=== PATIENT | female | born 1965 | race Caucasian/White ===

== ENCOUNTER 2017-07-12 23:28 | Emergency (ER) | payer OTHER, SELFPAY ==
[2017-07-12 23:29] VITALS: BP 161/102; PULSE 68; RESP 16; TEMP 36.9; O2SAT 100; BMI 25.9
[2017-07-13 00:23] VITALS: BP 154/114; PULSE 64
--- NOTE | 2017-07-13 00:44 | ED.DCSUM_ITS ---
- ER Visit Summary Date of Service: 07/13/17 Chief Complaint: [] Hypertension History of Present Illness: The patient is a 51 F [] complaining of hypertension and anxiety. Patient reports she had a TIA 3 weeks ago in this facility and was admitted overnight for observation. She reportedly had an MRI that indicated a mini stroke. She had her atenolol increased and had aspirin added to her regimen. She reports taking her blood pressure today and was in the 160s systolic and she reports increasing anxiety and concern that her hypertension will cause her to have another mini stroke. She reports slight tingling in her right upper extremity however denies any neurologic deficit. Physical Examination: [] Afebrile, vital signs stable. Systolic blood pressure measuring 153 upon arrival. Middle-age female no acute distress. Cardiovascular exam is regular rate and rhythm. Lungs clear to auscultation. Abdomen is soft and nontender. No lower extremity edema. NIH score is 0. Plus 5 out of 5 bilateral upper and lower extremity strength. Test Results: [] None. Emergency Department Course and Treatment: [] Patient given 1 mg intravenously of Ativan, 625 mg intravenously of Phenergan, 0.1 mg p.o. clonidine. On serial examination blood pressure measured 118/78. Patient reportedly felt improved. She was discharged to follow-up with her primary care physician. Treatment Plan: [] Follow up with PCP or neurologist. Return if symptoms recur. Disposition: [] Discharge, stable. Impression: [] Anxiety Hypertension History of TIA This note was generated with [employer] dictation software. It may contain incorrect words, spelling, and punctuation that were not noted in review of the chart prior to signing ED Disposition - Plan for ED Patient: Chief Complaint: Hypertension Referrals: Kaity Silva MD [Primary Care Provider] -
[2017-07-13] MEDS: cloNIDine HCl 0.1 MG Tablet PO (00:49)
[2017-07-13] MEDS: LORazepam 2 MG/ML Syringe 1 MG IV (00:53)
[2017-07-13 00:56] VITALS: BP 137/97
--- NOTE | 2017-07-13 01:37 | ED.DEP ---
ED Disposition - Plan for ED Patient: Disposition: Home or Assisted Living Chief Complaint: Hypertension Diagnosis: Essential (primary) hypertension Instructions: ED HTN Established, Your Body's Response to Anxiety Referrals: Kaity Silva MD [Primary Care Provider] -
[2017-07-13 01:59] VITALS: BP 112/74; PULSE 64
== END 2017-07-13 02:00 | disposition home or self-care (01) ==
PROVIDERS: Emergency Provider Emergency Medicine; Family Provider Internal Medicine; PCP Internal Medicine
DX: F41.9 Anxiety disorder, unspecified (principal); I10 Essential (primary) hypertension; Z86.73 Personal history of transient ischemic attack (TIA), and cerebral infarction without residual deficits; E78.00 Pure hypercholesterolemia, unspecified
CPT/HCPCS: 96374; 96375; 99284

== ENCOUNTER → 2019-04-27 15:00 | Outpatient (CLI) | payer OTHER, SELFPAY ==
[2019-04-27 16:06] LABS: Erythrocyte Sedimentation Rate 8 mm/hr (0-30)
[2019-04-27 16:33] LABS: Vitamin B12 1302 pg/mL (211-911); Vitamin D,25 Hydroxy 22.9 ng/mL (29.95-100.01)
[2019-04-27 16:39] LABS: ALB/GLOB Ratio 1.2 RATIO (0.9-2.4); AST(SGOT) 20 U/L (15-37); Alanine Aminotransfer ALT/SGPT 34 U/L (13-56); Albumin, Serum 3.9 g/dL (3.2-5.0); Alkaline Phosphatase 98 U/L (45-117); Anion Gap 7 (5-15); BUN 11 mg/dL (7-18); BUN/Creat Ratio 16.8 RATIO (10-20); Bilirubin, Direct 0.22 mg/dL (0.00-0.30); CRP < 2.90 mg/L (0.0-3.0); Chloride 109 mmol/L (98-107); Creatinine, Serum 0.66 mg/dL (0.55-1.02); EST Glomerular Filtration Rate 100 mL/min (>60); Est Glom Filt Rate - Afr Amer 120 mL/min (>60); Globulin 3.3 g/dL (2.2-4.2); Glucose 107 mg/dL (74-106); Magnesium 2.2 mg/dL (1.6-2.6); Phosphorus 3.2 mg/dL (2.5-4.9); Potassium 3.6 mmol/L (3.5-5.1); Protein, Total 7.2 g/dL (6.4-8.2); Sodium Level 143 mmol/L (136-145); Thyroid Stim Hormone (TSH) 1.48 uIU/mL (0.358-3.74)
== END ==
PROVIDERS: Family Provider Internal Medicine; PCP Internal Medicine; Referring Provider Nurse Practitioner Family; Visit Provider Nurse Practitioner Family
DX: R53.83 Other fatigue (principal); Z79.899 Other long term (current) drug therapy
CPT/HCPCS: 36415; 80053; 82248; 82306; 82607; 83735; 84100; 84443; 85652; 86140

== ENCOUNTER 2020-04-13 18:20 | Emergency (ER) | payer OTHER, SELFPAY ==
[2020-04-13 18:21] VITALS: BP 165/95; PULSE 67; RESP 15; TEMP 36.4; O2SAT 97; BMI 25.0
--- NOTE | 2020-04-13 18:57 | ED.VISSUMM ---
- ER Visit Summary Date of Service: 04/13/20 Chief Complaint: Acute on chronic hypertension History of Present Illness: The patient is a 54 F history of prior TIA, hypertension and hyperlipidemia. Patient currently is on atenolol 50 twice daily and lisinopril 20 in the morning and 10 at night for her hypertension. States that she has had a very stressful week and her blood pressures been running higher. Earlier today it was 170/100 last several days has been around 149/99. She really denies any substantial complaints. No chest pain. No strokelike symptoms. Physical Examination: White female no acute distress initial blood pressure 165/95. On my exam it is 160/88. No distress. H EENT exam unremarkable. Normal speech no facial droop. Neck nontender. Lungs clear to auscultation. Heart regular rhythm no murmur. Abdomen soft nontender. Extremities moves all 4. Normal corporate associate strength. Normal dorsi plantarflexion. Neuro exam normal NIH 0. Test Results: None Emergency Department Course and Treatment: Patient has acute on chronic hypertension. Currently where her blood pressure is running I would not acutely lower that. She denied a long discussion on blood pressure treatments. She understands that she needs no testing and she is comfortable being discharged home with outpatient follow-up. Treatment Plan: Continue her current blood pressure medications. Log blood pressures twice daily. Follow-up with your doctor next week to see if they need to make any adjustments to her blood pressure medications. Disposition: Discharge Impression: Acute on chronic hypertension History of prior TIA This note was generated with [employer] dictation software. It may contain incorrect words, spelling, and punctuation that were not noted in review of the chart prior to signing ED Disposition - Plan for ED Patient: Referrals: Kaity Silva MD [Primary Care Provider] -
--- NOTE | 2020-04-13 19:00 | ED.DEP ---
ED Disposition - Plan for ED Patient: Disposition: Home or Assisted Living Instructions: ED High Blood Pressure Established Out of Control Referrals: Kaity Silva MD [Primary Care Provider] - 5-7 Days Additional Instructions: Log blood pressures twice daily. When you follow-up with your primary care physician reviewed blood pressures with them. Once he see the pressures they can decide if they need to make any medication adjustments. This may be stress related it could also be that you need your medication dosages adjusted.
[2020-04-13 19:11] VITALS: BP 156/94; PULSE 66; O2SAT 99
== END 2020-04-13 19:16 | disposition home or self-care (01) ==
PROVIDERS: Emergency Provider Emergency Medicine; PCP Internal Medicine
DX: I10 Essential (primary) hypertension (principal); E78.5 Hyperlipidemia, unspecified; Z86.73 Personal history of transient ischemic attack (TIA), and cerebral infarction without residual deficits
CPT/HCPCS: 99282

== ENCOUNTER 2025-01-04 13:44 | Outpatient (RCR) | payer BC, SELFPAY ==
--- NOTE | 2025-01-04 14:41 | HP.PTEVAL ---
Patient's Visit Information Visit Information Visit Information: BOSTON BANKS is a 59 year old F referred to Physical Therapy by Dr. Xavier Snyder MD with a diagnosis of Right Shoulder Pain. Date of Evaluation: 01/04/25 Physical Therapist: Carmela Moyer DPT Visit Plan Frequency: 1x/Week Duration: 1 Week Plan: Discharge to HEP- call if questions or concerns. HEP Given IE: postural education, scapular retraction, bilateral ER, mid row, LAE Subjective Subjective: Patient reports right shoulder pain- about a year- saw Dr. Snyder last week- cortisone injection- feels a lot better- 90% back to normal. Worst prior to injection: 5/10 Agg: lifting the overhead, reaching, getting dressed. Right hand dominate. Eases: Tylenol, avoidance. Pain was located it the back of the shoulder- the pain radiated to the elbow. 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 Sleep: sometimes as she is a side sleeper. She is here for some exercises that she can do to keep the pain away. X-ray but no MRI. PMHx: HTN, cholesterol. Meds: see list in chart. Objective Objective: Posture: forward head, rounded shoulders- can correct and maintain with verbal cues Palpation: not tender ROM: Cervical: WNL, Shoulder: WNL with tightness reported at end range flexion and IR behind the back Strength: Shoulder: 4+/5 throughout, Scap: fair plus, Elbow: 5/5 Wrist: 5/5 Sealing Machine Operator: good Special Tests R Shoulder Empty Can - SS: Positive R Shoulder Belly Press - SupScap: Negative R Shoulder Neer - Impingement: Positive R Shoulder Mariscal Kevan - Impingement: Positive Balance/Special Test Scores Quick DASH Score: 15.9075 Goals Goal 1:: Patient will be I with HEP and progression Goal Time Frame: 1 Week Rehabilitation Potential Physical Therapy Diagnosis: Patient presents with decreased scapular strength/stabilization leading to poor posture causing impingement and pain Rehabilitation Potential: Good Anticipated Interventions Text: Thank you for the opportunity to evaluate your patient. For Medicare and Medicare HMO plans, please review the plan of care and approve it. It will need to be FAXED BACK to us at [phone] for Medicare purposes. For Medicare only, by signing this I certify the plan of care. Please let me know if there are questions or concerns regarding this plan of care. Physician Signature: Date:
--- NOTE | 2025-01-04 14:41 | HP.PT.NRP ---
Patient Information Patient Information: BOSTON BANKS was seen in my office for initial evaluation on 01/04/25. The following Plan of Care was established for this patient: POC Established Initial Frequency: 1x/Week Initial Duration: 1 Week Last Seen Last Seen: This patient was last seen in our office . Pertinent comments regarding their Physical therapy will appear below: At this point I will be discontinuing this patient from physical therapy. I would be happy to see this patient again in the future if found appropriate by the physician. Thank you! Carmela Moyer DPT Balance/Gait/Functional tests Balance/Special Test Scores Quick DASH Score: 15.9095
== END 2025-01-04 19:00 | disposition home or self-care (01) ==
LOC: PT 13:44
PROVIDERS: PCP Internal Medicine; Referring Provider Orthopaedic Surgery; Visit Provider Orthopaedic Surgery
DX: M25.511 Pain in right shoulder (principal)
CPT/HCPCS: 97162

== ENCOUNTER 2025-04-19 17:00 | Outpatient (RCR) | payer BC, SELFPAY ==
--- NOTE | 2025-03-18 11:49 | HP.PTEVAL_ITS ---
Patient's Visit Information Visit Information Visit Information: BOSTON BANKS is a 59 year old F referred to Physical Therapy by Dr. Xavier Snyder MD with a diagnosis of L KNEE OA, CHONDROMALACIA AND COMPLEX TEAR OF MENISCUS. Date of Evaluation: 03/18/25 Physical Therapist: Ilene Pino PT, Cert MDT Visit Plan Frequency: 2x /Week Duration: 2-4 Months Plan: MODALITIES NEEDED TO HELP DECREASE L KNEE PAIN AND SWELLING. PATELLAR MOBS AND OTHER MANUAL THERAPY NEEDED FOR ROM AND EDEMA REDUCTION. CORE AND LE STRENGTHENING TO HELP IMPROVE ADL AND GAIT FUNCTION. AVOID LONG ARC EXT AND DEEP SQUATS. 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 Present symptoms: L KNEE PAIN, SWELLING AND STIFFNESS. CLICKING AND POPPING. INTERMITTENT LOCKING AND BUCKLING. Present since: COUPLE YEARS AGO WITH FLARE UP THIS SPRING AND AGAIN END OF JAN 2025 Pain Scale: WORST 5/10, LEAST 1/10 Currently: 1/10 Is it getting better, worse or staying the same: STAYING THE SAME OR WORSENING AGAIN Commenced as a result of: NO APPARENT REASON Symptoms at onset: END OF JAN - WOKE UP WITH A LOT OF SWELLING. Worse: STEPS, GETTING UP AND DOWN FROM THE FLOOR, TWISTING, TOO MUCH WALKING, WALKING UP AND DOWN HILLS, STANDING ON IT A LOT, WALKING ON GRAVEL, BENDING, STRETCHING IT OUT. Better: BENDING MY KNEE*, ICING IT, RESTING IT, BEING OFF OF IT, RUBBING IT, TYLONOL, DRAINING IT AND CORTISONE SHOT (FEB 04 2025). Disturbed sleep: SOMETIMES Previous history/Previous treatment: H/O ACHING IN THE BACK OF THE KNEE PRIOR TO THIS RECENT FLARE UP. Treatment this episode: DRAINING OF KNEE AND CORTISONE SHOT. Gait: MILD LIMP ON LLE. NORMALLY CAN GO UP AND DOWN STEPS RECIPROCALLY BUT SOMETIMES HAS TO GO ONE AT A TIME. Imaging: L KNEE X-RAYS AND MRI AT [facility]/Recent major surgery: HTN AND CHOLESTEROL. H/O RHODA SHLD PAIN. OTHER: HAS TRIP TO [place] AND [place] PLANNED IN NOVEMBER 2025. WANTS TO AVOID SURGERY UNTIL AFTER TRIP IF AT ALL POSSIBLE. STATES THAT SHE HAS BEEN A LOT BETTER SINCE HAVING HER KNEE DRAINED AND GETTING THE CORTISONE SHOT. Objective Objective: THIS PATIENT AMBULATES INDEP'LY INTO PT WITHOUT ANY AD'S WITH DECREASED STRIDE LENGTH AND A MILD LIMP ON THE LLE. R LE ROM AND STRENGTH IS WFL. SHE HAS SWELLIING AND TENDERNESS LOCALIZED TO THE L KNEE REGION MAINLY SURROUNDING THE L PATELLA AND IS ESPECAILLY TENDER OVER THE PATELLAR TENDON. SHE HAS DECREASED PATELLAR MOBILITY. NEURO INTACT. L KNEE ACTIVE EXT IN SITTING IS -15 DEG AND SUPINE PASSIVE EXT IS -6 DEG. L KNEE FLEXION IS 140 DEG. PATIENT C/O PAIN AND POPPING DURING MVMT INTO FLEX AND EXT. EVEN THOUGH THERE IS L KNEE PUFFINESS CIRCUMFERENE MEASUREMENTS AT THE JT LINE ARE SYMMETRICAL RHODA AT 38.5 CM. LLE STRENGTH: HIP 4/5, KNEE EXT 3-/5, KNEE FLEX 3-/5, ANKLE 5/5. PATIENT HAS FAIR CORE STRENGTH. Goals Goal 1:: DECREASE C/O L KNEE PAIN BY AT LEAST 50% TO EASE ADL'S. Goal Time Frame: 6-8 Weeks Goal 2:: INCREASE PAINFREE FLEX AND EXT ROM OF L KNEE TO EASE ADL'S Goal Time Frame: 6-8 Weeks Goal 3:: IMPROVE FUNCTIONAL STRENGTH OF CORE AND LLE TO EASE ADL'S. Goal Time Frame: 6-8 Weeks Goal 4:: PATIENT WILL BE ABLE TO WALK ON LEVEL SURFACES COMMUNITY DISTANCES WITH 0-2/10 L KNEE PAIN, NORMALIZED GAIT AND WITHOUT FEAR OF LLE BUCKLING. Goal Time Frame: 8-12 Weeks Goal 5:: PATIENT WILL BE ABLE TO ASCEND AND DESCEND STEPS RECIPROCALLY WITH ONE HR WITHOUT LIMITATION Goal Time Frame: 8-12 Weeks Goal 6:: PATIENT WILL BE INDEP WITH A HEP FOR CONTINUED IMPROVEMENT POST FORMAL PT Goal Time Frame: 8-12 Weeks Rehabilitation Potential Physical Therapy Diagnosis: CORE AND L LE STIFFNESS AND WEAKNESS WITH ALTERED GAIT. Rehabilitation Potential: Fair Anticipated Interventions Patient/Client Instruction: Educate patient on: Condition, Plan of Care and Risk Factors For the Purpose of:: To improve self management Therapeutic Exercise to Include: Strength training, Body mechanics, Flexibilty training, Gait and locomotor training, Neuromotor development, "In an aquatic setting", Passive ROM and Active ROM Manual Therapy Techniques to Include: Massage, Manual lymph drainage, Mobilization and Passive ROM Comment: PATELLAR MOBILIZATION For the Purpose of:: To decrease pain, To decrease swelling/inflammation, To increase ROM, To improve nutrient delivery to tissue, To increase oxygenation perfusion, To decrease soft tissue restriction and To increase flexibility/ROM IF ES: Yes Other electric stimulation: Yes Cryotherapy (ice pack, ice massage): Yes Ultrasound (thermal/non thermal): Yes Vasopneumatic device: Yes For the Purpose of:: To decrease pain, To decrease swelling/inflammation and To improve nutrient delivery to tissue Text: Thank you for the opportunity to evaluate your patient. For Medicare and Medicare HMO plans, please review the plan of care and approve it. It will need to be FAXED BACK to us at [phone] for Medicare purposes. For Medicare only, by signing this I certify the plan of care. Please let me know if there are questions or concerns regarding this plan of care. Physician Signature: Date:
--- NOTE | 2025-04-19 17:53 | HP.PTDCSUM_ITS ---
Discharge Summary D/C summary: It has been my pleasure to treat BOSTON BANKS referred by Dr. Xavier Snyder MD, with the diagnosis of L KNEE OA, CHONDROMALACIA AND COMPLEX TEAR OF MENISCUS for a total of 10 visit(s). Discharge Date: 04/19/25 Please see the following information for a summary of their discharge status. Subjective Subjective: PATIENT REPORTS SHE IS DOING A LOT BETTER - 60-70% BETTER. STATES SHE ISN'T HAVING ANY PAIN RIGHT NOW BUT IT DOES STILL GET ACHY (0-2/10). SHE REPORTS SHE CAN CARRY LAUNDY UP THE STEPS RECIPROCALLY SOMETIMES BUT OTHER TIMES SHE GOES UP AND DOWN ONE STEP AT A TIME - IT JUST DEPENDS ON HOW IT IS FEELING. "I CAN DO EVERYTHING I NEED TO DO NOW". PATIENT DENIES FEELING LIKE HER KNEE IS GOING TO BUCKLE ON HER NOW. PATIENT STATES "I FEEL GOOD AND I THINK I CAN TAKE IT FROM HERE". STATES RECEIVED SECOND OPINION AT [facility] - NO SURGERY RECOMMENDED AT THIS TIME AND WHEN NEEDED TKR SUGGESTED. IN THE MEAN TIME GEL SHOTS COULD BE CONSIDERED PER [facility] PER PATIENT REPORT. Pain L knee: Pain Intensity (Out of 10): 0 Overall Improvement % Improvement: 65 Objective Objective/Function: PATIENT WAS SEEN TODAY FOR RE-ASSESSMENT OF PROGRESS TOWARD THE SET PT GOALS AND THE NEED FOR FURTHER PHYSICAL THERAPY VS READINESS FOR DISCHARGE. SHE HAS RESPONDED WELL TO PT AND IS HAVING LESS PAIN, DOES NOT FEEL LIKE HER KNEE IS GOING TO BUCKLE, HAS IMPROVED KNEE ROM AND STRENGTH AND IS INDEP WITH A HEP. SHE DOES STILL HAVE L KNEE SWELLING AND INTERMITTENT PAIN WITH UNDERLYING TORN MENISCUS AND OA. SHE ALSO HAS NOT RETURNED TO HER PLOF AND DOES NOT INTEND TO TRY TO KNOWING THE UNDERLYING PATHOLOGY. UPON EXAM TODAY: THIS PATIENT AMBULATES INDEP'LY INTO PT WITHOUT ANY AD'S OR GROSS DEVIATIONS NOTED. SHE CONTINUES TO HAVE SWELLIING LOCALIZED TO THE L KNEE REGION. NEURO INTACT. L KNEE ACTIVE EXT IN SITTING IS NOW FULL. L KNEE FLEXION IS 140 DEG. L LE STRENGTH: HIP 4/5, KNEE EXT 4-/5, KNEE FLEX 4-/5, ANKLE 5/5. STEPS: DEMO'S INDEP ASCENDING AND DESCENDING RECIPROCALLY WITH ONE HR WITHOUT DEVIATION OR C/O PAIN TODAY. Goals Goal 1:: DECREASE C/O L KNEE PAIN BY AT LEAST 50% TO EASE ADL'S. Goal Progress: Goal Met Goal 2:: INCREASE PAINFREE FLEX AND EXT ROM OF L KNEE TO EASE ADL'S Goal Progress: Goal Met Goal 3:: IMPROVE FUNCTIONAL STRENGTH OF CORE AND LLE TO EASE ADL'S. Goal Progress: Goal Met Goal 4:: PATIENT WILL BE ABLE TO WALK ON LEVEL SURFACES COMMUNITY DISTANCES WITH 0-2/10 L KNEE PAIN, NORMALIZED GAIT AND WITHOUT FEAR OF LLE BUCKLING. Goal Progress: Goal Met Goal 5:: PATIENT WILL BE ABLE TO ASCEND AND DESCEND STEPS RECIPROCALLY WITH ONE HR WITHOUT LIMITATION Goal Progress: Progressing Goal 6:: PATIENT WILL BE INDEP WITH A HEP FOR CONTINUED IMPROVEMENT POST FORMAL PT Goal Progress: Goal Met Plan Plan: D/C. PATIENT MAY BENEFIT FROM AQUATIC THERAPY. SHE IS GOING TO CONSIDER. D/C Information d/c sentence: If there are questions or concerns regarding this patient's physical therapy, please feel free to call me at [phone]. Thank you for the referral of this patient. Sincerely, Ilene Pino, PT, Cert MDT Balance/Gait/Functional tests Balance/Special Test Scores Lower Extremity Functional Score: 56 Improvement % Improvement: 65
== END 2025-04-19 19:00 | disposition home or self-care (01) ==
LOC: PT 17:00
PROVIDERS: PCP Internal Medicine; Referring Provider Orthopaedic Surgery; Visit Provider Orthopaedic Surgery
DX: S83.272D Complex tear of lateral meniscus, current injury, left knee, subsequent encounter (principal); M17.12 Unilateral primary osteoarthritis, left knee; M94.262 Chondromalacia, left knee
CPT/HCPCS: 97110; 97140; 97162; 97530